=== PATIENT | male | born 1960 | race Caucasian/White ===

== ENCOUNTER 2017-07-05 14:37 | Emergency (ER) | payer BC ==
[~2017-07-05] VITALS: Ht 170.2 cm; Wt 66.6 kg
[~2017-07-05 14:37] MED LIST: BUPR2SUB SL; ONDA4TAB7 SL
[2017-07-05 14:42] VITALS: TEMP 36.5; Ht 170.2 cm; Wt 66.6 kg
[2017-07-05] MEDS ORDERED: BUPR1SUB23 PO (15:03)
[2017-07-05] MEDS ORDERED: ONDANSETRON INJ 2 MG/ML 2 ML VIAL IV STA (15:05)
[2017-07-05] MEDS ORDERED: DEXAMETHASONE SOD INJ 4 MG/ML VIAL IV STA (15:05)
[2017-07-05] MEDS ORDERED: DiphenhydrAMINE HCL 50 MG/ML VIAL IV STA (15:05)
[2017-07-05] MEDS ORDERED: RANITIDINE HCL 50 MG/100 ML D5W IV STA (15:05)
[2017-07-05 15:18] LABS: BASO % 0.3 %; BASO ABS # 0.02 K/uL (0-0.2); COMPLETE YES; EOS % 2.1 %; HEMATOCRIT 46.4 % (42-52); IG% 0.2 %; LYMPH % 27.5 %; LYMPH ABS # 1.83 K/uL (1.2-3.4); MEAN CELL VOLUME 89.7 fL (80-100); MEAN CORPUSCULAR HEMOGLOBIN 28.8 pg (25-34); MEAN CORPUSCULAR HGB CONC 32.1 g/dl (32-36); MEAN PLATELET VOLUME 10.2 fL (7.4-10.4); MONO % 11.4 %; NEUT % 58.5 %; PLATELET COUNT 304 K/uL (130-400); RED BLOOD COUNT 5.17 M/uL (4.7-6.1); WHITE BLOOD COUNT 6.65 K/uL (4.8-10.8)
[2017-07-05 15:39] LABS: BLOOD UREA NITROGEN 15 mg/dl (7-18); BUN/CREATININE RATIO 17.6 (10-20); CALCIUM 8.9 mg/dl (8.5-10.1); CARBON DIOXIDE 26 mmol/L (21-32); CHLORIDE 105 mmol/L (98-107); CREATININE 0.85 mg/dl (0.60-1.40); GLUCOSE 99 mg/dl (70-99); MAGNESIUM 2.2 mg/dl (1.8-2.4); POTASSIUM 4.1 mmol/L (3.5-5.1); SODIUM 138 mmol/L (136-145)
[2017-07-05 15:41] VITALS: O2SAT 96
[2017-07-05] MEDS ORDERED: EPP3/2 INJ (17:11)
[2017-07-05] MEDS ORDERED: PRED50TA PO (17:11)
[2017-07-05 17:13] VITALS: BP 101/55; PULSE 97; O2SAT 98
--- NOTE | 2017-07-05 18:08 | EMERGENCY ROOM VISIT NOTE ---
History Report prepared by Gem: Raffi Shaffer Under the Supervision of: Dr. Dioni Alston M.D. First contact with patient: 14:58 Chief Complaint: ALLERGIC REACTION Stated Complaint: SICK,BAD HIVES ALL OVER Nursing Triage Summary: Pt reports vomiting and hives all over after he ate breakfast. Denies any food allergies. Denies breathing difficulty or any other symptoms pt has red hives on trunk of body and arms. feet are itchy. pt reports he ate duck eggs and sausage. pt reports he has eaten this before and no problems History of Present Illness The patient is a 56 year old male who presents to the Emergency Room with complaints of a constant allergic reaction starting prior to arrival. The patient states that he ate duck eggs and sausage, and 10 minutes after he vomited 5 times, and then 45 minutes afterwards he started to get diffuse hives. He states that he has eaten these things in the past with no problems. He states that he has no known allergies, and the states that they recently got a new kitten. The patient denies any heart issues in the past. Pt denies LOC, headache, fevers, chills, diaphoresis, visual changes, neck pain, chest pain, breathing difficulties, abdominal pain, back pain, melena, hematochezia, urinary symptoms, numbness, weakness, lymphadenopathy, or other complaints. Source of History: patient Onset: prior to arrival Position: other (global) Quality: other (allergic reaction) Timing: constant Associated Symptoms: + vomiting Review of Systems See HPI for pertinent positives and negatives. A total of ten systems were reviewed and were otherwise negative. Past Medical & Surgical Medical Problems: (1) Shoulder surgery Social History Smoking Status: Current Some Day Smoker Alcohol Use: none Marital Status: single Housing Status: lives alone Occupation Status: employed Current/Historical Medications Scheduled Buprenorphine Hcl-Naloxone Hcl (Suboxone 8-2 Mg), 0.5 TAB PO DAILY Prednisone (Prednisone), 50 MG PO DAILY Scheduled PRN Epinephrine (Epipen 2-Bo), 1 DOSE INJ UD PRN for ALLERGIC REACTION Allergies Coded Allergies: No Known Allergies (Verified , 07/05/17) Physical Exam Vital Signs Date Time Temp Pulse Resp B/P (MAP) Pulse Ox O2 Delivery O2 Flow Rate FiO2 07/05/17 17:13 97 20 101/55 98 07/05/17 16:28 63 16 122/60 96 Room Air 07/05/17 15:41 96 Room Air 07/05/17 15:40 50 20 128/92 96 07/05/17 15:01 55 07/05/17 14:58 58 07/05/17 14:45 97 Room Air 07/05/17 14:42 36.5 63 18 161/89 94 Room Air Physical Exam GENERAL: Awake, alert, well-appearing, in no distress HENT: Normocephalic, atraumatic. Oropharynx unremarkable. EYES: Normal conjunctiva. Sclera non-icteric. NECK: Supple. No nuchal rigidity. FROM. No JVD. RESPIRATORY: Clear to auscultation. CARDIAC: Borderline bradycardic rate, normal rhythm. Extremities warm and well perfused. Pulses equal. ABDOMEN: Soft, non-distended. No tenderness to palpation. No rebound or guarding. No masses. RECTAL: Deferred. MUSCULOSKELETAL: Chest examination reveals no tenderness. The back is symmetrical on inspection without obvious abnormality. There is no CVA tenderness to palpation. No joint edema. LOWER EXTREMITIES: Calves are equal size bilaterally and non-tender. No edema. No discoloration. NEURO: Normal sensorium. No sensory or motor deficits noted. SKIN: Diffuse hives all over. No jaundice noted. Medical Decision & Procedures Laboratory Results 07/05/17 15:00 Red Blood Count 5.17, Mean Corpuscular Volume 89.7, Mean Corpuscular Hemoglobin 28.8, Mean Corpuscular Hemoglobin Concent 32.1, Mean Platelet Volume 10.2, Neutrophils (%) (Auto) 58.5, Lymphocytes (%) (Auto) 27.5, Monocytes (%) (Auto) 11.4, Eosinophils (%) (Auto) 2.1, Basophils (%) (Auto) 0.3, Neutrophils # (Auto ) 3.89, Lymphocytes # (Auto) 1.83, Monocytes # (Auto) 0.76, Eosinophils # (Auto ) 0.14, Basophils # (Auto) 0.02 07/05/17 15:00 Test 07/05/17 15:00 White Blood Count 6.65 K/uL (4.8-10.8) Red Blood Count 5.17 M/uL (4.7-6.1) Hemoglobin 14.9 g/dL (14.0-18.0) Hematocrit 46.4 % (42-52) Mean Corpuscular Volume 89.7 fL (80-100) Mean Corpuscular Hemoglobin 28.8 pg (25-34) Mean Corpuscular Hemoglobin Concent 32.1 g/dl (32-36) Platelet Count 304 K/uL (130-400) Mean Platelet Volume 10.2 fL (7.4-10.4) Neutrophils (%) (Auto) 58.5 % Lymphocytes (%) (Auto) 27.5 % Monocytes (%) (Auto) 11.4 % Eosinophils (%) (Auto) 2.1 % Basophils (%) (Auto) 0.3 % Neutrophils # (Auto) 3.89 K/uL (1.4-6.5) Lymphocytes # (Auto) 1.83 K/uL (1.2-3.4) Monocytes # (Auto) 0.76 K/uL (0.11-0.59) Eosinophils # (Auto) 0.14 K/uL (0-0.5) Basophils # (Auto) 0.02 K/uL (0-0.2) RDW Standard Deviation 45.2 fL (36.4-46.3) RDW Coefficient of Variation 13.8 % (11.5-14.5) Immature Granulocyte % (Auto) 0.2 % Immature Granulocyte # (Auto) 0.01 K/uL (0.00-0.02) Anion Gap 7.0 mmol/L (3-11) Est Creatinine Clear Calc Drug Dose 91.8 ml/min Estimated GFR () 113.7 Estimated GFR (Non- 98.1 BUN/Creatinine Ratio 17.6 (10-20) Calcium Level 8.9 mg/dl (8.5-10.1) Magnesium Level 2.2 mg/dl (1.8-2.4) Troponin I < 0.015 ng/ml (0-0.045) Chemistry Specimen Hemolysis Laboratory results reviewed by me Medications Administered Medications (Trade) Dose Ordered Sig/Arnol Route Start Time Stop Time Status Last Admin Dose Admin Ranitidine HCl (zANTac IV) 50 mg NOW STAT IV 07/05/17 15:05 07/05/17 15:07 DC 07/05/17 15:30 50 MG Ondansetron HCl (Zofran Inj) 4 mg NOW STAT IV 07/05/17 15:05 07/05/17 15:07 DC 07/05/17 15:21 4 MG Diphenhydramine HCl (Benadryl Inj) 50 mg NOW STAT IV 07/05/17 15:05 07/05/17 15:07 DC 07/05/17 15:23 50 MG Dexamethasone Sodium Phosphate (Decadron Inj) 10 mg NOW STAT IV 07/05/17 15:05 07/05/17 15:07 DC 07/05/17 15:25 10 MG ECG Indication: other (allergic reaction) Rate (beats per minute): 47 Rhythm: sinus bradycardia Findings: nonspecific-ST abn, no acute ischemic change, no ectopy, other ( Intraventricular conduction delay) ED Course 1458: The patient was evaluated in room A11. A complete history and physical exam was performed. 1505: Decadron Inj 10mg IV, Benadryl 50mg IV, Zofran 4mg IV, Zantac 50mg IV 1656: I reevaluated the patient, and the hives have gone away. 1712: I reevaluated the patient. Discussed results and discharge instructions: He verbalized understanding and agreement. The patient is ready for discharge. Medical Decision Prior records/ancillary studies reviewed. Triage Nursing notes reviewed and agree them. Additional history obtained from his significant other. The patient's history was concerning for possible allergic reaction. Differential diagnosis: Etiologies such as allergic reaction, anaphylaxis, urticaria, Bañuelos-Bowen syndrome, toxic epidermal necrolysis, erythema multiforme, cellulitis, as well as others were entertained. Physical examination: As above. ER treatment provided: Continuous cardiac monitoring Benadryl 50 mg IV Zantac 50 mg IV Decadron 10 mg IV On reassessment the patient felt better. Hives resolved. Diagnostic interpretation by me: The labs revealed an unremarkable CBC and chemistry panel. Troponin 0. ECG normal however the patient was noted to have occasional asymptomatic ectopic atrial rhythm monitoring It appears the patient had an allergic reaction. The above treatment did well to reverse the symptoms. After prolonged monitoring and frequent reassessments the patient did very well and symptoms resolved. The patient will avoid all the foods consumed earlier today. By the evaluation outlined above emergent etiologies such as airway compromise, Bañuelos-Bowen syndrome, toxic epidermal necrolysis, erythema multiforme, cellulitis, as well as others were deemed relatively unlikely. The patient was informed about the findings as listed above. All questions were answered and he was Pleased with the treatment. Return instructions were outlined and the patient was discharged in stable condition. Outpatient prescription management: EpiPen prednisone Referral: the patient states he is in need of primary care and was told to follow-up next week and is in agreement. Medication Reconcilliation Current Medication List: was personally reviewed by me Blood Pressure Screening Patient's blood pressure: Normal blood pressure Impression Primary Impression: Allergic reaction Additional Impression: Urticaria Scribe Attestation The scribe's documentation has been prepared under my direction and personally reviewed by me in its entirety. I confirm that the note above accurately reflects all work, treatment, procedures, and medical decision making performed by me. Departure Information Dispostion Home / Self-Care Prescriptions Epinephrine (EPIPEN 2-BO) 0.3 Mg Inj 1 DOSE INJ UD Y for ALLERGIC REACTION, #1 BOX Prov: Dioni Alston MD 07/05/17 Prednisone (Prednisone) 50 Mg Tab 50 MG PO DAILY for 4 Days, #4 TAB Prov: Dioni Alston MD 07/05/17 Referrals No Doctor, Assigned (PCP) Forms HOME CARE DOCUMENTATION FORM, IMPORTANT VISIT INFORMATION Patient Instructions My [facility] Additional Instructions ALLERGIC REACTION INSTRUCTIONS: DO NOT drive, drink alcohol, operate machinery, or perform dangerous activities today. You were given medications in the ER that can affect your ability to safely function or operate a vehicle. Epi-Pen: Use one injection as instructed for severe allergic reactions associated with shortness of breath, difficulty breathing, or throat or tongue swelling. If you use this injection call 911 or proceed immediately to the nearest Emergency Room. Prednisone 50mg: Once daily until the prescription is finished. It is best to take this earlier in the day as some patients note occasional difficulty falling asleep when taken in the late evening. Diphenhydramine(Benadryl) 25mg: use 25 to 50 mg every six hours for swelling, itching, or hives. This medication is sedating and will cause drowsiness. Avoid alcohol, operating machinery or dangerous equipment, working on ladders or roofs, DRIVING, or situations where being under the influence may be dangerous. Zantac 75: Take two pills twice a day along with Benadryl as needed for swelling , itching, or hives. Most people know this for its affect on the stomach, but it also acts similar to, but less potent than Benadryl for allergic reactions. Both the Benadryl and the Zantac are available [id number]. Continue current medications. Return to the emergency department for worsening of your rash, swelling of your face, lips, tongue, or throat, difficulty breathing, vomiting, or as needed. Follow-up with your primary care physician next week for a recheck of your current condition. Problem Qualifiers
== END 2017-07-05 17:28 | disposition home or self-care (01) ==
LOC: C.EDB 14:38 → C.EDA 17:28
DX: T78.40XA Allergy, unspecified, initial encounter (principal); L50.9 Urticaria, unspecified; R11.2 Nausea with vomiting, unspecified; R00.1 Bradycardia, unspecified; Z79.899 Other long term (current) drug therapy; F17.200 Nicotine dependence, unspecified, uncomplicated; X58.XXXA Exposure to other specified factors, initial encounter